=== PATIENT | female | born 1970 | race Caucasian/White ===

== ENCOUNTER 2025-06-25 00:32 | Emergency (ER) | payer BC, SELFPAY ==
[2025-06-25] VITALS (8 sets, daily range): BP systolic 128–192; BP diastolic 76–110; BMI 33.9
[2025-06-25 01:07] LABS: Hematocrit 36.0 % (37.0-47.0); Hemoglobin 12.0 g/dL (12.0-16.0); Mean Corp Hgb Conc. 33.3 g/dL (33.0-37.0); Mean Corpuscular Volume 91.6 fL (81.0-99.0); Nucleated Red Blood Cells % 0 %; Platelet Count 292 10^3/uL (130-400); Red Cell Dist. Width 12.3 % (11.5-14.5)
[2025-06-25 01:24] LABS: ALT (SGPT) 34 U/L (0-35); AST (SGOT) 19 U/L (14-36); Albumin 4.1 g/dl (3.5-5.0); Alkaline Phosphatase 64 U/L (38-126); Blood Urea Nitrogen 22 mg/dl (7-17); Calcium 9.3 mg/dl (8.4-10.2); Carbon Dioxide 25 mmol/L (22-30); Chloride 106 mmol/L (98-107); Glucose 102 mg/dl (70-99); Potassium 3.8 mmol/L (3.5-5.1); Sodium 139 mmol/L (135-145); Total Protein 7.0 g/dl (6.3-8.2); eGFR > 60.00
[2025-06-25 01:35] LABS: Troponin I < 0.012 ng/ml
--- NOTE | 2025-06-25 07:16 | ED.GENMED ---
History of Present Illness
General
Chief Complaint: Cardiac Symptoms
Source: patient
Exam Limitations: none
Time Seen by Provider: 06/25/25 03:53
Nursing documentation reviewed up to this point in time: agreed with
History of Present Illness
History of Present Illness:
Note:
CHIEF COMPLAINT(S)
Palpitations and persistent cough with chest soreness.
HISTORY OF PRESENT ILLNESS
The patient is a 54-year-old female with a history of a severe cold at the beginning of May, which progressed into a persistent cough. She was initially placed on doxycycline and a corticosteroid due to concerns about possible bronchitis or
pneumonia, although her chest X-ray was clear. After completing the steroid course, the patient experienced chest soreness when coughing, and her primary care physician noted normal white blood cell counts and a clear chest X-ray.
The patient reports no history of cardiac disease, and she has a stress test scheduled for in [place] as a precaution. She describes an episode starting tonight around 10:30 p.m. where she could feel her heartbeat markedly, despite
feeling calm with no anxiety.
She denies shortness of breath or pain. There is no known thyroid issue, though her mother has a history of thyroid problems. The patient has noted sensitivity to caffeine, likening her current symptoms to having caffeine late at night. Travel
history includes flying to [place] last weekend.
The patient mentions a tactile tenderness on her chest, likely due to the persistent cough. She has not experienced shortness of breath or chest pain but describes palpitations as the primary issue.
SOCIAL HISTORY
Denies smoking. Consumes alcohol socially. Reports sensitivity to caffeine, consuming only one cup of coffee every morning and avoids any caffeine after noon due to its impact on her sensitivity.
REVIEW OF SYSTEMS
- Cardiovascular: Palpitations without chest pain or shortness of breath.
- Respiratory: Persistent cough for over a month, chest soreness attributed to coughing.
- Social: Reports sensitivity to caffeine.
PHYSICAL EXAM
General: Alert, no acute distress.
Skin: Warm, dry.
Head: Normocephalic, atraumatic.
Neck: Supple, trachea midline.
Eye Ears, nose, mouth and throat: Oral mucosa moist.
Cardiovascular: Normal peripheral perfusion, No edema.
Respiratory: Respirations are non-labored.
Gastrointestinal: Abdomen nondistended.
Back: Normal range of motion, Normal alignment.
Musculoskeletal: Normal ROM, normal strength.
Neurological: Alert and oriented to person, place, time, and situation, No focal neurological deficit observed.
Psychiatric: Cooperative, appropriate mood & affect.
PLAN
1. Order a computed tomography scan to rule out pulmonary embolism.
2. Proceed with the planned stress test on for a baseline evaluation.
3. Continue monitoring for any unusual arrhythmias as advised by her primary care physician.
DIFFERENTIAL DIAGNOSIS
The Differential Diagnosis includes, in no particular order and is not limited to:
1. Cardiac arrhythmia
2. Anxiety or panic attack
3. Pulmonary embolism
4. Bronchitis
5. Pericarditis
6. Atypical pneumonia
7. Costochondritis
8. Caffeine sensitivity exacerbation
9. Thyroid dysfunction
10. Gastroesophageal reflux disease (GERD)
Disposition:
SUMMARY OF ENCOUNTER
The patient is a 51-year-old female who presents with palpitations. She is traveling from out of town. A CT scan was conducted and it returned negative for any acute findings. Additionally, troponin levels are negative, indicating no myocardial
injury. An EKG shows sinus rhythm with a rate of 72, normal intervals, and axis, without any ischemic changes. Given these findings, the decision was made to discharge the patient for follow-up with her food and drug research scientist at home.
DISPOSITION
Discharge.
PLAN
The patient will follow up with her food and drug research scientist at home as part of her ongoing care.
INDEPENDENT REVIEW OF LABS AND INTERPRETATION OF TESTS
My independent review of the CT scan is negative for any acute pathology.
My independent review of troponin indicates negative levels, ruling out any acute myocardial injury.
My independent interpretation of the EKG shows sinus rhythm with a rate of 72, normal intervals, and normal axis, with no ischemic changes.
MEDICATION RECONCILIATION
No medications were administered or prescribed during this visit.
MEDICAL DECISION MAKING
-Complexity of Data Reviewed:
Chronic conditions affecting care are not explicitly mentioned. Differential Diagnosis includes cardiac arrhythmia and anxiety or panic attack.
-Data:
Category [address] scan, troponin test, and EKG were reviewed.
-Risk:
Prescription medication was considered but not given.
Consideration of Admission/Observation: Escalation of care including admission/observation was considered given the complexity and risk of the patients presenting complaint, exam findings, and/or their underlying comorbidities. However, ultimately I
feel the patient is safe for outpatient management with close follow-up. Reasoning: Work-up reassuring, does not reveal any acute life/organ-threatening processes, patients symptoms well controlled upon reevaluation, reexamination is reassuring,
vitals are stable, patient agreeable with discharge, reliable for follow-up.
DIAGNOSIS
Palpitations - ICD-10 R00.2
Phy Exam
Physical Exam
Physical Exam:
.
Course
Orders/Labs/Results
Orders:
Orders
06/25/25 00:39
ECG [Electrocardiogram (*1)] Urgent
Reason for Study: Bradycardia / Tachycardia
EKG- Treatment ONCE
06/25/25 01:00
Complete Blood Count/With Diff Urgent
Comprehensive Metabolic Panel Urgent
Troponin I Urgent
06/25/25 05:28
CT Chest PE Study Urgent
Comment:
Reason For Exam: cp, palpittaions, long road trip
Abnormal Lab Results
06/25/25
01:00
RBC 3.93 L 10^6/uL
(4.20-5.40)
Hct 36.0 L %
(37.0-47.0)
Absolute Lymphs (auto) 4.5 H 10^3/uL
(1.2-3.4)
BUN 22 H mg/dl
(7-17)
Glucose 102 H mg/dl
(70-99)
06/25/25 01:00
06/25/25 01:00
Vital Signs
Initial and Last Documented VS:
Initial Vital Signs
Temp Pulse Resp BP Pulse Ox
98.2 F 84 18 192/110 98
06/25/25 00:34 06/25/25 00:34 06/25/25 00:34 06/25/25 00:34 06/25/25 00:34
Last Documented Vital Signs
Temp Pulse Resp BP Pulse Ox
98.2 F 68 17 130/78 96
06/25/25 00:34 06/25/25 06:30 06/25/25 06:30 06/25/25 06:00 06/25/25 07:18
*Radiology
Radiology exam reviewed: radiology read reviewed
*Pulse Oximetry
SaO2: 96
Oxygen Mode of Delivery: Room air
Patient hypoxic: no
*Critical Care Note
Total Time (30-74mins, 75-104mins- exclusive of procedures): Not Applicable
ED Attending Note
-
Portions of this chart may have been created with voice recognition software.� Occasional wrong word or��sound alike� substitutions may have occurred due to the inherent limitations of voice recognition software.
Discharge Plan
Departure
Patient Disposition: Home (Routine Discharge)
Date of Disposition: 06/25/25
Time of Disposition: 07:16
Patient with high blood pressure during this ER visit?: Yes
Condition: Good
Discharge Problem:
Heart palpitations
Instructions: BLOOD PRESSURE, Heart Palpitations
Referrals:
PRIVATE,PHYSICIAN [Family Provider, Internal Medicine]
Activity Restrictions/Additional Instructions:
Thank You for choosing [facility].
It was a pleasure meeting you and taking part in your care. We hope for your continued healing and wellness.
Please read discharge instructions in their entirety. However, they are for general education and may not describe your exact diagnosis at discharge. Information on your ER visit and medical conditions were discussed with you along with appropriate
follow up information...
If indicated, please take your medications as instructed and indicated on discharge paperwork.
Please schedule a follow up appointment as directed. Call to schedule an appointment
Please return to the emergency department with ANY change in, persisting, or worsening of symptoms. If any of your symptoms do not improve, or persist, or become more severe within 6-12 hours, please return to the emergency department for further
care.
Please return to the emergency department if you develop a headache, neck pain/stiffness, fever greater than 100.4F, chest pain, shortness of breath, persistent nausea, vomiting, slurred speech, difficulty walking, numbness/tingling, weakness, signs
of infection or any other symptoms that are worrisome to you.
If you have any questions or concerns please do not hesitate to call the Hospital at .
Interventions
Interventions:
*Risk Screen - Suicide Last Done: 06/25/25 00:34
*General Assessment Last Done: 06/25/25 01:40
*Neglect/Abuse Screening Last Done: 06/25/25 00:34
*ED- Fall Risk Assessment Last Done: 06/25/25 01:40
*ED COVID-19 Vaccine History Last Done: 06/25/25 01:40
*ED Influenza Vaccine History Last Done: 06/25/25 01:40
ED- Pulmonary Assessment Last Done: 06/25/25 01:40
ED- Cardiac Assessment Last Done: 06/25/25 01:40
Discharge Date and Time
Print Language: ALBANIAN
== END 2025-06-25 07:20 | disposition home or self-care (01) ==
LOC: EMR 00:32
PROVIDERS: Student in an Organized Health Care Education/Training Program; EMERGENCY PHYSICIAN Student in an Organized Health Care Education/Training Program
DX: R00.2 Palpitations (principal); R05.3 Chronic cough
CPT/HCPCS: 99284; 71275; 80053; 84484; 85025; 93005; Q9967